=== PATIENT | male | born 1980 | race Caucasian/White ===

== ENCOUNTER 2017-11-23 07:05 | Emergency (ER) | payer BC, SELFPAY ==
[2017-11-23 07:06] VITALS: BP 151/112; PULSE 82; RESP 16; TEMP 36; O2SAT 97; BMI 36.3
--- NOTE | 2017-11-23 07:26 | RAD_ITS ---
STUDY: X-RAY CHEST REASON FOR EXAM: Male, 37 years old. Syncope TECHNIQUE: PA and 2 lateral views of the chest. COMPARISON: 12/01/2016 FINDINGS: EKG leads overlie the chest The lungs are clear and expanded. There is no demonstrated pleural abnormality. Normal size heart. Normal mediastinum and chong. Normal visualized pulmonary arteries. Normal visualized aortic arch and descending thoracic aorta. Normal visualized thoracic spine. Normal visualized ribs, clavicles, and shoulders. There is no demonstrated abnormality of the visualized soft tissue structures of the upper abdomen. RAD/Chest PA and Lateral IMPRESSION: Normal x-ray examination of the chest. Electronically Signed: Esequiel Juárez MD at 8:21 EDT , Service support ,
--- NOTE | 2017-11-23 07:26 | EKG12_ITS ---
Test Reason : SYNCOPE Blood Pressure : / mmHG Vent. Rate : 078 BPM Atrial Rate : 078 BPM P-R Int : 158 ms QRS Dur : 092 ms QT Int : 396 ms P-R-T Axes : 055 028 016 degrees QTc Int : 451 ms Normal sinus rhythm with sinus arrhythmia Normal ECG Confirmed by ANDRA GUSTAFSON, KRISHAN ([id number]), editorial project manager CAROLINE COTTRELL ([id number]) on 11/25/2017 8:59:53 AM Referred By: SUSHANT Confirmed By:KRISHAN SILVERMAN MD
--- NOTE | 2017-11-23 07:26 | CT_ITS ---
STUDY: CT BRAIN WITHOUT CONTRAST REASON FOR EXAM: Male, 37 years old. Syncope, headache nausea and vomiting RADIATION DOSAGE (If Supplied By Facility): CTDIvol = ( 44.99 ) mGy, DLP = ( 829.85 ) mGycm TECHNIQUE: Transaxial CT imaging of the brain was performed without administration of intravenous contrast material. Individualized dose optimization techniques were used for this CT. COMPARISON: None. FINDINGS: Normal soft tissue structures. Normal calvarium. Normal size ventricles and extra-axial spaces for the patient's age. Normal white matter tracts of the cerebral hemispheres. Normal basal ganglia and thalami. Normal brainstem. Normal cerebellum. There is no intracranial hemorrhage. There are no findings of an acute ischemic infarction. Normal visualized paranasal sinuses. CT/Brain/Head without Contrast IMPRESSION: Normal unenhanced CT scan of the brain. Electronically Signed: Esequiel Juárez MD at 8:15 EDT , Service support ,
[2017-11-23] MEDS: proCHLORPERazine 10 MG/2 ML Vial IV (07:40)
[2017-11-23] MEDS: DiphenhydrAMINE 50 MG/ML Syringe 25 MG IV (07:40)
[2017-11-23] MEDS: 0.9% Normal Saline 1,000 ML 1000 ML IV (07:40)
[2017-11-23 07:41] VITALS: BP 169/114; BP 172/108; BP 175/95; PULSE 70; PULSE 80; PULSE 85
[2017-11-23 07:48] VITALS: BP 152/93; PULSE 78; RESP 20; O2SAT 97
[2017-11-23 08:02] LABS: Absolute Lymphocyte Count 2.78 X10^3/ul (0.83-4.51); Absolute Neutrophil Count 6.5 X10^3/uL (2.0-7.7); Basophil# 0.03 X10^3/uL; Basophil% 0.3 % (0-1); Eosinophil# 0.09 X10^3/uL; Eosinophils% 0.9 % (0-5); Hematocrit 48.7 % (40-54); Lymphocyte # 2.78 X10^3/ul (4.0); Lymphocyte % 27.2 % (19-41); Mean Corp Hgb Conc 34.9 g/gl (32-36); Mean Corpuscular Hgb 29.4 pg (27.0-32.0); Mean Corpuscular Volume 84.3 fL (80-94); Mean Platelet Vol. 9.7 fl (6.2-12.0); Monocyte# 0.79 X10^3/uL; Monocyte% 7.7 % (0-10); Neutrophil % 63.5 % (47-70); Platelet Count 275 K/mm3 (150-450); RBC Distribution Width CV 13.6 % (11.6-14.6); RBC Distribution Width SD 41.5 fl (35.1-43.9); Red Blood Count 5.78 M/mm3 (4.6-6.2); White Blood Count 10.2 K/mm3 (4.4-11.0)
[2017-11-23 08:05] LABS: POSITIVE COUNT NO; POSITIVE DIFFERENTIAL NO; POSITIVE MORPHOLOGY NO
[2017-11-23 08:14] LABS: Anion Gap 5 (5-15); BUN 17 mg/dL (7-18); BUN/Creat Ratio 13.7 RATIO (10-20); Calcium,Total 8.7 mg/dL (8.5-10.1); Chloride 108 mmol/L (98-107); Creatinine, Serum 1.24 mg/dL (0.70-1.30); EST Glomerular Filtration Rate 70 mL/min (>60); Est Glom Filt Rate - Afr Amer 84 mL/min (>60); Estimated Creatinine Clearance 89.53 ml/min; Glucose 109 mg/dL (74-106); Potassium 3.9 mmol/L (3.5-5.1); Sodium Level 140 mmol/L (136-145)
--- NOTE | 2017-11-23 08:30 | ED.VISSUMM ---
- ER Visit Summary Date of Service: 11/23/17 Chief Complaint: Headache History of Present Illness: The patient is a 37 M who presents with headache. He has a history of prior similar headaches and reports a history of migraines. He states he woke initially with symptoms at about midnight last night. He took some ibuprofen and had improvement of symptoms. However when he woke up again at about 4:30 AM his headache had returned. He states it is typical in location and character to his previous headaches. He did vomit twice and reports light sensitivity which is also typical of his previous headaches. He also reports feeling dizzy and lightheaded. When he went to stand up out of bed he fell backwards and had a brief loss of consciousness. He complains of dizziness with standing. He otherwise reports a slight recent cough but no fevers. He denies any recent illness. He denies chest pain or shortness of breath. Physical Examination: Initial blood pressure 151/112 but on repeat in the room is 152/93 vitals otherwise unremarkable Heart regular rate and rhythm Lungs are clear Abdomen soft and nontender Alert and oriented with no focal or lateralizing neurological deficits Pupils are equally round reactive to light Test Results: CT of the head is normal. Chest x-ray is normal. EKG shows normal sinus rhythm at rate of 78 with no acute ischemic changes. Laboratory studies are unremarkable including negative troponin. Orthostatic vital signs are negative. Emergency Department Course and Treatment: She was symptomatically treated with IV fluids Compazine and Benadryl. On reevaluation headache and dizziness have both improved. He complains of feeling a little jittery. This is likely related to the Compazine. He was advised of his elevated blood pressure in particular his elevated diastolic. However he has no chest pain or shortness of breath. He has a history of migraines with prior similar symptoms. I do not believe his headache is related to his hypertension. He notes that he has been elevated previously when in the emergency department. He does not have a primary care physician. He was referred to the next physician on the [facility] [place] referral list. He was advised of the need for outpatient follow-up. He understands to return for new or worsening symptoms was instructed on specific symptoms to monitor for. He is agreeable to the plan was discharged. Treatment Plan: [] Disposition: Discharge Impression: Migraine Syncope Elevated blood pressure This note was generated with [employer] dictation software. It may contain incorrect words, spelling, and punctuation that were not noted in review of the chart prior to signing ED Disposition - Plan for ED Patient: Chief Complaint: Syncope Referrals: Care Physician,No Primary [Primary Care Provider] -
--- NOTE | 2017-11-23 08:33 | ED.DCSUM_ITS ---
- ER Visit Summary Date of Service: 11/23/17 Chief Complaint: Headache History of Present Illness: The patient is a 37 M who presents with headache. He has a history of prior similar headaches and reports a history of migraines. He states he woke initially with symptoms at about midnight last night. He took some ibuprofen and had improvement of symptoms. However when he woke up again at about 4:30 AM his headache had returned. He states it is typical in location and character to his previous headaches. He did vomit twice and reports light sensitivity which is also typical of his previous headaches. He also reports feeling dizzy and lightheaded. When he went to stand up out of bed he fell backwards and had a brief loss of consciousness. He complains of dizziness with standing. He otherwise reports a slight recent cough but no fevers. He denies any recent illness. He denies chest pain or shortness of breath. Physical Examination: Initial blood pressure 151/112 but on repeat in the room is 152/93 vitals otherwise unremarkable Heart regular rate and rhythm Lungs are clear Abdomen soft and nontender Alert and oriented with no focal or lateralizing neurological deficits Pupils are equally round reactive to light Test Results: CT of the head is normal. Chest x-ray is normal. EKG shows normal sinus rhythm at rate of 78 with no acute ischemic changes. Laboratory studies are unremarkable including negative troponin. Orthostatic vital signs are negative. Emergency Department Course and Treatment: She was symptomatically treated with IV fluids Compazine and Benadryl. On reevaluation headache and dizziness have both improved. He complains of feeling a little jittery. This is likely related to the Compazine. He was advised of his elevated blood pressure in particular his elevated diastolic. However he has no chest pain or shortness of breath. He has a history of migraines with prior similar symptoms. I do not believe his headache is related to his hypertension. He notes that he has been elevated previously when in the emergency department. He does not have a primary care physician. He was referred to the next physician on the [facility] referral list. He was advised of the need for outpatient follow-up. He understands to return for new or worsening symptoms was instructed on specific symptoms to monitor for. He is agreeable to the plan was discharged. Treatment Plan: [] Disposition: Discharge Impression: Migraine Syncope Elevated blood pressure This note was generated with [employer] dictation software. It may contain incorrect words, spelling, and punctuation that were not noted in review of the chart prior to signing ED Disposition - Plan for ED Patient: Chief Complaint: Syncope Referrals: Care Physician,No Primary [Primary Care Provider] -
--- NOTE | 2017-11-23 08:33 | ED.DEP ---
ED Disposition - Plan for ED Patient: Chief Complaint: Syncope Instructions: ED Fainting Unkn Cause, ED Cephalgia Unspecified, ED Hypertension Poss Referrals: Care Physician,No Primary [Primary Care Provider] - Rishi Herron MD [STAFF PHYSICIAN] -
[2017-11-23 08:38] VITALS: BP 146/104; PULSE 66; RESP 15; O2SAT 96
== END 2017-11-23 08:45 | disposition home or self-care (01) ==
PROVIDERS: Emergency Provider Emergency Medicine
DX: G43.909 Migraine, unspecified, not intractable, without status migrainosus (principal); R55 Syncope and collapse; R03.0 Elevated blood-pressure reading, without diagnosis of hypertension; R05 Cough; Z72.0 Tobacco use
CPT/HCPCS: 70450; 71046; 80048; 84484; 85025; 93005; 96361; 96374; 96375; 99284; J7030

== ENCOUNTER → 2017-12-01 16:54 | Outpatient (CLI) | payer BC, SELFPAY ==
[2017-12-03 09:24] LABS: Transferrin 271 mg/dL (200-370)
== END ==
PROVIDERS: Family Provider Family Medicine; PCP Family Medicine; Visit Provider Family Medicine
DX: D75.1 Secondary polycythemia (principal)
CPT/HCPCS: 36415; 84466

== ENCOUNTER → 2017-12-04 12:39 | Outpatient (CLI) | payer BC, SELFPAY ==
--- NOTE | 2017-12-04 12:43 | US_ITS ---
STUDY: THYROID ULTRASOUND REASON FOR EXAM: Male, 37 years old. Thyromegaly. TECHNIQUE: Ultrasound evaluation of the thyroid was performed with real-time and static chilel-scale imaging. COMPARISON: None. FINDINGS: RIGHT LOBE: The right lobe of the thyroid gland is enlarged and measures 6.0 cm x 2.2 cm x 2.6 cm. There is a homogeneous echotexture. There are no demonstrated solid, cystic or complex lesions. LEFT LOBE: The left lobe of the thyroid gland is enlarged and measures 5.8 cm x 2.3 cm x 2.2 cm. There is a homogeneous echotexture. There are no demonstrated solid, cystic or complex lesions. ISTHMUS: The isthmus measures 6.0 mm. Lateral to the right lobe of the thyroid, 3 enlarged lymph nodes are seen. The largest measures 2.4 cm x 1.7 cm x 0.6 cm. US/Thyroid IMPRESSION: Diffuse enlargement of the thyroid. Benign appearing enlarged right cervical lymph nodes. Electronically Signed: Madi Nelson MD at 15:50 EDT Tel [phone], Service support ,
== END ==
PROVIDERS: Family Provider Family Medicine; PCP Family Medicine; Visit Provider Family Medicine
DX: E01.0 Iodine-deficiency related diffuse (endemic) goiter (principal)
CPT/HCPCS: 76536

== ENCOUNTER → 2017-12-10 16:02 | Outpatient (CLI) | payer BC, SELFPAY ==
[2017-12-10 18:36] LABS: Iron 75 ug/dL (65-175); Iron Binding Capacity,Total 383 ug/dL (250-450); PERCENT IRON SATURATION 19.6 % (15.0-55.0); T4 Free Direct 1.17 ng/dL (0.76-1.46); Thyroid Stim Hormone (TSH) 2.26 uIU/mL (0.358-3.74)
[2017-12-11 06:57] LABS: Hemoglobin A1c 5.3 % (4.2-6.3)
[2017-12-15 10:05] LABS: Anti-Thyroglobulin AB < 1.0 IU/mL (0.0-0.9); Thyroglobulin, Serum Qt. 26.8 ng/mL (1.4-29.2); Thyroid Peroxidase AB 12 IU/mL (0-34)
== END ==
PROVIDERS: Family Provider Family Medicine; PCP Family Medicine; Visit Provider Family Medicine
DX: D75.1 Secondary polycythemia (principal); E01.0 Iodine-deficiency related diffuse (endemic) goiter; R03.0 Elevated blood-pressure reading, without diagnosis of hypertension; R73.09 Other abnormal glucose
CPT/HCPCS: 36415; 83036; 83540; 83550; 84432; 84439; 84443; 86376; 86800

== ENCOUNTER → 2018-09-15 13:25 | Outpatient (CLI) | payer MEDICAID, SELFPAY ==
--- NOTE | 2018-09-15 13:32 | RAD_ITS ---
STUDY: X-RAY - CERVICAL SPINE REASON FOR EXAM: Male, 38 years old. Lump in left side of the neck with pain. Headache for 3 weeks. TECHNIQUE: 5 view(s) of the cervical spine were obtained. COMPARISON: None FINDINGS: Normal anterior atlantoaxial articulation. Normal odontoid process. There is straightening of the normal cervical lordosis. Normal vertebral bodies and endplates. Normal disc space heights. Normal visualized intervertebral neuroforamina. There is no evidence of acute fracture or loss of vertebral axial height. There is maintenance of normal alignment. The soft tissue structures are unremarkable. There is no visualized mass or foreign body. RAD/Cerv Spine 4 or 5 Views IMPRESSION: 1. Straightened cervical lordosis without other evidence of cervical spine abnormality. 2. No evidence of soft tissue abnormality. Electronically Signed: London Lawrence DO at 18:17 EST Tel [phone], Service support ,
--- NOTE | 2018-09-15 13:33 | RAD_ITS ---
STUDY: X-RAY - LUMBAR SPINE REASON FOR EXAM: Male, 38 years old. Burning pain and numbness in the legs and feet. Headache for 3 weeks. TECHNIQUE: 5 view(s) of the lumbar spine were obtained. COMPARISON: None FINDINGS: Normal lumbar lordosis. There is no substantial scoliosis. There is a normal alignment of the vertebrae. Normal vertebral bodies and endplates. Normal disc space heights. There is no evidence of acute fracture or loss of vertebral axial height. There is no demonstrated spondylolysis of the pars interarticulares. The soft tissue structures are unremarkable. RAD/L/S Spine Min 4 Views IMPRESSION: Normal x-ray examination of the lumbar spine. Electronically Signed: London Lawrence DO at 18:18 EST Tel [phone], Service support ,
== END ==
PROVIDERS: Family Provider Family Medicine; PCP Family Medicine; Referring Provider Chiropractor; Visit Provider Chiropractor
DX: S13.4XXA Sprain of ligaments of cervical spine, initial encounter (principal); S33.5XXA Sprain of ligaments of lumbar spine, initial encounter; X58.XXXA Exposure to other specified factors, initial encounter; Y93.9 Activity, unspecified; Y92.9 Unspecified place or not applicable; Y99.9 Unspecified external cause status
CPT/HCPCS: 72050; 72110

== ENCOUNTER 2020-01-10 19:56 | Emergency (ER) | payer MEDICAID, SELFPAY ==
[2020-01-10 19:57] VITALS: BP 153/101; PULSE 79; RESP 16; TEMP 36.6; O2SAT 97; BMI 34.5
[2020-01-10] MEDS: DiphenhydrAMINE 50 MG/ML Syringe 25 MG IV (20:30)
[2020-01-10] MEDS: proMETHazine 25 MG/ML Syringe 12.5 MG IV (20:30)
[2020-01-10] MEDS: 0.9% Normal Saline 1,000 ML 999 ML IV (20:31)
[2020-01-10] MEDS: Ketorolac 30 MG/ML Syringe 15 MG IV (20:31)
--- NOTE | 2020-01-10 20:59 | ED.DCSUM_ITS ---
History of Present Illness Chief Complaint: Headache Informant: Patient Onset: Days Context: Gradual Timing: Continuous, Waxes and wanes Quality: Similar Prior Headaches, Throbbing Current Severity: Severe Associated Symptoms: Nausea, Vomiting, Photophobia Narrative: Is a 39-year-old male with history of migraines presenting with headache. Demetris baker states his headaches been present for the past 2 days. He has associated nausea and vomiting. He also has photophobia. The headache is on the left side of his head. This feels like his prior migraines. He states sometimes his headaches go away with just ibuprofen and Tylenol but this 1 is not. This is not the worst headache of his life. Has been alternating ibuprofen and Tylenol for pain. His last had ibuprofen about 5 and half hours ago. Patient denies any fever, vision changes or neck pain. He denies any other complaints at this time. He states he has had a head CT in the past which did not show any acute abnormalities. Past Medical History - Allergies and Home Meds Allergies/Adverse Reactions: Allergies No Known Allergies Allergy (Verified 01/10/20 19:57) Primary Care Physician: Serenity Bertrand NP-C [Primary Care Provider] - Past Medical History: - - migraines Surgical History: noncontributory Lives: Spouse/ Significant Other Smoking Status: Current every day smoker Review of Systems General: Denies: Chills, Fever, Sweats Eyes: Reports: - - photophobia . Denies: Visual changes - bilaterally, Diplopia ENT: Denies: Rhinorrhea, Sore throat Cardiovascular: Denies: Chest pain, Palpitations Respiratory: Denies: Dyspnea, Cough, Dyspnea on exertion Gastrointestinal: Reports: Nausea. Denies: Abdominal pain, Vomiting, Diarrhea, Melena, Hematochezia Genitourinary: Denies: Dysuria, Hematuria, Frequency Musculoskeletal: Denies: Back pain, Extremity Pain Skin: Denies: Rash, Wounds Neurological: Reports: Headache. Denies: Weakness, Numbness Physical Exam Vital Signs/Narrative: Vital Signs Temp Pulse Resp BP Pulse Ox 01/10/20 19:57 98 F 79 16 153/101 H 97 Inital Vital Signs reviewed: Yes General: Well nourished, Well developed Head: NC, AT Eyes: Perrl, EOMI ENT: Moist mucous membranes, No rhinorrhea Neck: Supple, No Lymphadenopathy, No JVD, Nontender, No Meningismus Cardiovascular: Regular rate, Regular rhythm, No murmurs Respiratory: No distress, CTA bilaterally, Chest nontender Abdomen: Soft, Nontender, Nondistended, Normal bowel sounds Back: Nontender, Normal Inspection Extremities: Nontender, No edema Skin: Normal color, No rash Neuro: Alert, Oriented x3, Cranial nerves II-XII grossly intact, Normal Strength, Normal Sensation, Normal DTR, Normal Gait Psychological: Normal affect - NIH Stroke Scale 1a Level of Consciousness: 0 1b LOC Questions (Score 2 if aphasic/stupor): 0 1c LOC Commands (Only score 1st attempt): 0 2 Best Gaze (If aphasic, use reflexive mvmts.): 0 3 Visual: 0 4 Facial Palsy: 0 5 Motor Arm Right (UN = amputation/fusion): 0 5 Motor Arm Left: 0 6 Motor Leg Right: 0 6 Motor Leg Left: 0 7 Limb ataxia (Only + if out of proportion): 0 8 Sensory (Aphasia/stupor=0 or 1, coma=2): 0 9 Best Language: 0 10 Dysarthria (mute, coma=2, intubated=UN): 0 11 Extinction and Inattention (only scored if +): 0 Total Score: 0 Diagnostic/Tx/Re-eval - Medical Decision Making She is evaluated for migraine headache. Is consistent with his prior migraines. He appears nontoxic and in no acute distress. He has a normal neurologic exam. Patient is concerned because his blood pressure is mildly elevated at 153. I do not suspect hypertensive emergency as a cause of his symptoms today. Patient has had prior head CTs I do not think a repeat head CT is indicated. Do not suspect meningitis. Patient is given migraine cocktail consisting of Toradol, IV fluids, Benadryl and Phenergan. On reevaluation his headache is gone from a 10 out of 10 to barely there. He will be discharged home. He is given a prescription for Zofran at discharge. He is instructed to follow-up with his primary care doctor. Patient is counseled on signs and symptoms requiring return to the emergency room. Patient verbalizes agreement and understand this plan. Patient discharged home in stable and improved condition. ED Disposition - Plan for ED Patient: Disposition: Home or Assisted Living Diagnosis: Headache Instructions: ED, Migraine (Classical) Prescriptions: Ondansetron [Zofran Odt] 4 mg PO Q8H PRN PRN #12 tab PRN Reason: Nausea Transmission Status: Sent to [id number] Referrals: Serenity Bertrand, COMPUTER SERVICE TECHNICIAN-C [Primary Care Provider] -
[2020-01-10 22:00] VITALS: RESP 18
[2020-01-10 22:28] VITALS: BP 154/87; PULSE 55; RESP 16; O2SAT 98
--- OUTSIDE RECORDS SUMMARY | 2020-05-13 14:58 | XMS RPT_ITS | CCD ---
:1980 External Reference #:[id number] Author Organization [employer] Care Team Providers Name Role Phone Unavailable Unavailable Unavailable Results Result Name Value Range Unit Interpretation Flag Date Location covid on 2020-04-15 COVID 19 Result [facility] See Below [facility] Normal 04-15-2020 [facility] ([place]) (0000 0) Comment: Result Comment: Negative Negative for COVID19 (SARS C oV2) by PCR. This test was developed and its performance characteristics determined by [facility]'s [facility] [place]. This test has bee n authorized by FDA under an Emergency Use Authorization (EUA). This test has been validated in accordance with the FDA's Guidance Document Policy for Diagnostics Test ing in Laboratories Certified to Perform High Complexity Testing under CLI A prior to Emergency use Authorization for Coronavirus Disease 2019 dur ing the Public Health Emergency issued on September 24, 2019. Performed By: [facility] [email or web address] [place] [address] Can Cleaner: Cristobal cruz III, M.D. CLIA#: [id number] Phone#: Performed By: #### COVID ### # Yoan [address] [address] COVID 19 Source [facility] See Below Normal 04-15-2020 [facility] ([place]) ([id number]) Comment: Result Comment: Nasopharynge al Swab Performed By: [facility] [email or web address] [address] Can Cleaner: Cristobal cruz III, M.D. CLIA#: [id number] Phone#: Performed By: #### COVID ### # Yoan Jackson [address] [place] [address] Date of Onset [id number] Normal 04-15-2020 [facility] ([place]) ([address]) Comment: Performed By: #### COVID ### # Yoan Jackson [address] [place] [address] Employed in Healthcare No Normal 020 [facility] ([place] ([address]) Comment: Performed By: #### COVID ### # Yoan Jackson [address] [place] [address] First Test Yes Normal 04-15-2020 [facility] [place] ([address]) Comment: Performed By: #### COVID ### # Yoan Young[address] [address] Hospitalized No Normal 04-15-2020 [facility] ([place] ([address]) Comment: Performed By: #### COVID ### # Yoan Young[address] [address] ICU No Normal 04-15-2020 [facility] ([place] ([address]) Comment: Performed By: #### COVID ### # Yoan [address] [address] Not Normal 04-15-2020 [facility] ([place] ([address]) Comment: Performed By: #### COVID ### # Yoan [address] [address] Resides in Congregate Care No Normal [facility] ([place] Setting ([address]) Comment: Performed By: #### COVID ### # Yoan [address] [address] Symptomatic as Defined by CDC Yes Normal 04-15-2020 [facility] ([place] (0000 0) Comment: Performed By: #### COVID ### # Yoan [address] [address] tsh on 2020-01-19 TSH Qn 1.19 0.36-3.74 mcIU/mL Normal 01-19-2020 [facility] ([place] ([address]) Comment: Performed By: #### CBC, ADIF F, ANEU, TSH, LIPID, CMP, GFR #### [address] [address] lipid on 2020-01-19 Cholesterol [Mass/Vol] 153 0-200 mg/dL Normal 01-18- 020 [facility] ([place]) (0000 0) Comment: Result Comment: Cholesterol Reference Interval: Less than 200 Desirable 200-239 Borderline high risk 240 and above High risk Performed By: #### CBC, ADIF F, ANEU, TSH, LIPID, CMP, GFR #### [address] [address] Cholesterol in HDL 28 40-60 mg/dL Low 01-19-2020 [facility] [Mass/Vol] ([place]) (000 00) Comment: Performed By: #### CBC, ADIF F, ANEU, TSH, LIPID, CMP, GFR #### [address] [address] Cholesterol in LDL 90 0-130 mg/dL Normal 01-19-2020 [facility] [Mass/Vol] ([place]) (000 00) Comment: Performed By: #### CBC, ADIF F, ANEU, TSH, LIPID, CMP, GFR #### [address] [address] Triglyceride [Mass/Vol] 176 0-150 mg/dL High 2019 [facility] ([place] (0000 0) Comment: Result Comment: Triglyceride Reference Interval: Less than 150 Normal 150-199 Borderline high risk 200-499 High risk 500 or higher Very high risk Performed By: #### CBC, ADIF F, ANEU, TSH, LIPID, CMP, GFR #### [address] [address] cmp on 2020-01-19 Albumin [Mass/Vol] 4.2 3.5-5.0 G/dL Normal 01-19-2020 [facility] ([place] ([address]) Comment: Performed By: #### CBC, ADIF F, ANEU, TSH, LIPID, CMP, GFR #### [address] [address] Albumin/Globulin [Mass 1.3 1.1-2.5 ratio Normal 020 [facility]] [facility] [place]) ([address]) Comment: Performed By: #### CBC, ADIF F, ANEU, TSH, LIPID, CMP, GFR #### [address] [address] ALP [Catalytic activity/Vol] 62 40-135 U/L Normal 0 01-19-2020 [facility] ([place] (0000 0) Comment: Performed By: #### CBC, ADIF F, ANEU, TSH, LIPID, CMP, GFR #### [address] [address] ALT [Catalytic activity/Vol] 35 10-35 U/L Normal 0 01-19-2020 [facility] ([place] (0000 0) Comment: Performed By: #### CBC, ADIF F, ANEU, TSH, LIPID, CMP, GFR #### [address] [address] AST [Catalytic activity/Vol] 20 10-40 U/L Normal 0 01-19-2020 [facility] ([place] (0000 0) Comment: Performed By: #### CBC, ADIF F, ANEU, TSH, LIPID, CMP, GFR #### [address] [address] Bili Total 0.6 0.2-1.0 mg/dL Normal 01-19-2020 [facility] ([place] ([address]) Comment: Result Comment: Use of this assay is not recommended for patients undergoing treatment with eltrombopag d ue to the potential for falsely elevated results. Performed By: #### CBC, ADIF F, ANEU, TSH, LIPID, CMP, GFR #### [address] [address] Calcium [Mass/Vol] 8.7 8.4-10.2 mg/dL Normal 01-19-2020 [facility] ([place] (0000 0) Comment: Performed By: #### CBC, ADIF F, ANEU, TSH, LIPID, CMP, GFR #### [address] [address] Chloride [Moles/Vol] 101 98-107 mmol/L Normal 0 [facility] ([place] (0000 0) Comment: Performed By: #### CBC, ADIF F, ANEU, TSH, LIPID, CMP, GFR #### [address] [address] CO2 [Moles/Vol] 25 22-29 mmol/L Normal 01-19-2020 [facility]) (9[address]21) Comment: Performed By: #### CBC, ADIF F, ANEU, TSH, LIPID, CMP, GFR #### [address] [address] Creatinine [Mass/Vol] 1.05 0.70-1.30 mg/dL Normal 01-19-20 20 [facility] ([place] ([address]) Comment: Performed By: #### CBC, ADIF F, ANEU, TSH, LIPID, CMP, GFR #### [address] [address] Electrolyte Balance 11.0 mEq/L Normal 01-19-2020 [facility]) ([address]79) Comment: Performed By: #### CBC, ADIF F, ANEU, TSH, LIPID, CMP, GFR #### [address] [address] Globulin (S) [Mass/Vol] 3.3 G/dL Normal 2019 [facility]) ([address]) Comment: Performed By: #### CBC, ADIF F, ANEU, TSH, LIPID, CMP, GFR #### [address] [address] Glucose [Mass/Vol] 102 70-105 mg/dL Normal 01-19-2020 [facility] ([place] ([address]) Comment: Performed By: #### CBC, ADIF F, ANEU, TSH, LIPID, CMP, GFR #### [address] [address] Potassium [Moles/Vol] 4.5 3.5-5.1 mmol/L Normal 01-19-20 20 [facility] ([place] (0000 0) Comment: Performed By: #### CBC, ADIF F, ANEU, TSH, LIPID, CMP, GFR #### [address] [address] Protein [Mass/Vol] 7.5 6.4-8.2 G/dL Normal 01-19-2020 [facility] ([place] ([address]) Comment: Performed By: #### CBC, ADIF F, ANEU, TSH, LIPID, CMP, GFR #### [address] [address] Sodium [Moles/Vol] 137 136-145 mmol/L Normal 01-19-2020 [facility] ([place] (0000 0) Comment: Performed By: #### CBC, ADIF F, ANEU, TSH, LIPID, CMP, GFR #### [address] [address] Urea nitrogen [Mass/Vol] 16 7-18 mg/dL Normal 01-18 [facility] ([place] (0000 0) Comment: Performed By: #### CBC, ADIF F, ANEU, TSH, LIPID, CMP, GFR #### [address] [address] Urea nitrogen/Creatinine [Mass 15 7-27 ratio Normal 01-19-2020 [facility] ratio] [facility] ([place] ([address]) Comment: Performed By: #### CBC, ADIF F, ANEU, TSH, LIPID, CMP, GFR #### [address] [address] cbc on 2020-01-19 Erythrocyte distribution 13.7 11.5-14.5 % Normal 01-18 [facility] width (RBC) [Ratio] [facility] ([place] ([address]) Comment: Performed By: #### CBC, ADIF F, ANEU, TSH, LIPID, CMP, GFR #### [address] [address] Hematocrit (Bld) [Volume 50.7 42.0-52.0 % Normal 01-18 [facility] fraction] ([place]) (0000 0) Comment: Performed By: #### CBC, ADIF F, ANEU, TSH, LIPID, CMP, GFR #### [address] [address] Hemoglobin (Bld) 17.2 14.0-18.0 G/dL Normal 01-19-2020 [facility] [Mass/Vol] [facility] ([place]) ([address]) Comment: Performed By: #### CBC, ADIF F, ANEU, TSH, LIPID, CMP, GFR #### [address] [address] MCH (RBC) [Entitic mass] 29.0 27.0-31.2 pg Normal 01-18 [facility] ([place]) (0000 0) Comment: Performed By: #### CBC, ADIF F, ANEU, TSH, LIPID, CMP, GFR #### [address] [address] MCHC (RBC) [Mass/Vol] 33.9 31.8-35.4 G/dL Normal 01-19-20 20 [facility] ([place]) (0000 0) Comment: Performed By: #### CBC, ADIF F, ANEU, TSH, LIPID, CMP, GFR #### [address] [address] MCV (RBC) [Entitic vol] 85.6 80.0-94.0 fL Normal 2019 [facility] ([place]) (0000 0) Comment: Performed By: #### CBC, ADIF F, ANEU, TSH, LIPID, CMP, GFR #### [address] [address] Platelet mean volume 8.2 7.4-10.4 fL Normal 0 [facility] (Bld) [Entitic vol] ([place]) ([address]) Comment: Performed By: #### CBC, ADIF F, ANEU, TSH, LIPID, CMP, GFR #### [address] [address] Platelets (Bld) [#/Vol] 301 130-400 10 3/mcL Normal 2019 [facility] ([place] ([address]) Comment: Performed By: #### CBC, ADIF F, ANEU, TSH, LIPID, CMP, GFR #### [address] [address] RBC (Bld) [#/Vol] 5.92 4.04-6.13 10 6/mcL Normal 01-19-2020 Counts include 234 beds at the [facility] ([place]) (0000 0) Comment: Performed By: #### CBC, ADIF F, ANEU, TSH, LIPID, CMP, GFR #### [address] [address] WBC (Bld) [#/Vol] 12.70 4.60-10.80 10 3/mcL High 01-19-2020 [facility] ([place] (0000 0) Comment: Performed By: #### CBC, ADIF F, ANEU, TSH, LIPID, CMP, GFR #### [address] [address] .neuabs on Neutrophils (Bld) 8.00 2.85-6.16 10 3/mcL High 01-19-2020 [facility] [#/Vol] [facility] ([place] ([address]) Comment: Performed By: #### CBC, ADIF F, ANEU, TSH, LIPID, CMP, GFR #### [address] [address] .gfr on 2020-01-19 GFR 95 ml/min/1.73sqm Normal 12-26 [facility] ([place]) (0000 0) Comment: Result Comment: GFR Population mean for Afri can [place]uran, Non- Americans Ages 20-29 = 116 mL/min/1.73 sq.m. Ages 30-39 = 107 mL/min/1.73 sq.m. Ages 40-49 = 99 mL/min/1.73 sq.m. Ages 50-59 = 93 mL/min/1.73 sq.m. Ages 60-69 = 85 mL/min/1.73 sq.m. Ages 70+ = 75 mL/min/1.73 sq .m. Chronic Kidney Disease: Less than 60 mL/min/1.73 square meters End Stage Renal Disease: Les s than 15 mL/min/1.73 square meters Performed By: #### CBC, ADIF F, ANEU, TSH, LIPID, CMP, GFR #### [address] [address] GFR Non- 79 ml/min/1.73sqm Normal 01-19-2020 [facility] ([place]) ([address]) Comment: Result Comment: GFR Population mean for Afri can Honduran, Non- Americans Ages 20-29 = 116 mL/min/1.73 sq.m. Ages 30-39 = 107 mL/min/1.73 sq.m. Ages 40-49 = 99 mL/min/1.73 sq.m. Ages 50-59 = 93 mL/min/1.73 sq.m. Ages 60-69 = 85 mL/min/1.73 sq.m. Ages 70+ = 75 mL/min/1.73 sq .m. Chronic Kidney Disease: Less than 60 mL/min/1.73 square meters End Stage Renal Disease: Les s than 15 mL/min/1.73 square meters Performed By: #### CBC, ADIF F, ANEU, TSH, LIPID, CMP, GFR #### [address] [address] .auto diff on 01-18 Ammonia (P) [Mass/Vol] 0.80 0.15-1.00 10 3/mcL Normal 020 [facility] ([place] ([address]) Comment: Performed By: #### CBC, ADIF F, ANEU, TSH, LIPID, CMP, GFR #### [address] [address] Basophils (Bld) 0.10 0.00-0.19 10 3/mcL Normal 01-19-2020 [facility] [#/Vol] [facility] ([place] ([address]) Comment: Performed By: #### CBC, ADIF F, ANEU, TSH, LIPID, CMP, GFR #### [address] [address] Basophils/100 WBC (Bld) 0.5 0.0-2.5 % Normal 2019 [facility] ([place] (0000 0) Comment: Performed By: #### CBC, ADIF F, ANEU, TSH, LIPID, CMP, GFR #### [address] [address] Eosinophils (Bld) 0.20 0.00-0.40 10 3/mcL Normal 01-19-2020 [facility] [#/Vol] [facility] ([place]) ([address]) Comment: Performed By: #### CBC, ADIF F, ANEU, TSH, LIPID, CMP, GFR #### [address] [address] Eosinophils/100 WBC (Bld) 1.7 0.0-7.0 % Normal 12-26 [facility] ([place] (0000 0) Comment: Performed By: #### CBC, ADIF F, ANEU, TSH, LIPID, CMP, GFR #### [address] [address] Lymphocytes (Bld) 3.60 0.77-3.85 10 3/mcL Normal 01-19-2020 [facility] [#/Vol] [facility] ([place] ([address]) Comment: Performed By: #### CBC, ADIF F, ANEU, TSH, LIPID, CMP, GFR #### [address] [address] Lymphocytes/100 WBC (Bld) 28.2 10.0-50.0 % Normal 12-26 [facility] ([place]) ([address]) Comment: Performed By: #### CBC, ADIF F, ANEU, TSH, LIPID, CMP, GFR #### [address] [address] Monocytes/100 WBC (Bld) 6.5 1.7-13.0 % Normal 2019 [facility] ([place] (0000 0) Comment: Performed By: #### CBC, ADIF F, ANEU, TSH, LIPID, CMP, GFR #### [address] [address] Neutrophils/100 WBC (Bld) 63.1 37.0-80.0 % Normal 06- [facility] ([place]) ([address]) Comment: Performed By: #### CBC, ADIF F, ANEU, TSH, LIPID, CMP, GFR #### [place] [address] [place], [place] [address] progress on 2019-07 PROGRESS HNO ID: [id number] Normal 07-28-2019 [facility] Author: Raeann Oliva [place] ([id number]) Service: ? Author Type: Nurse Practitioner Type: Progress Notes Filed: 07/28/2019 12:37 PM Note Text: Subjective HPI Tiera Nova is a 39 year old male who presents with s inus pain, ear pain, and cough for the last 2 weeks. Bringing up thick mucu s that is sometimes blood tinged from the sinuses. Mild shortness of b reath with exertion. No known fever, denies chest pain. Multiple sick c ontacts at home. Current everyday smoker. He has tried mucinex as neede d without relief- made him feel jittery. Review of Systems Constitutional: Positive for malaise/fatigue. Negative for c hills and fever. HENT: Positive for congestion, ear pain and sinus pain. Nega tive for sore throat. Respiratory: Positive for cough, sputum production and short ness of breath. Negative for wheezing. Cardiovascular: Negative for chest pain. Skin: Negative for itching and rash. Neurological: Positive for headaches. Negative for dizziness . BP 138/86 Pulse 101 Temp 37.2 ?C (98.9 ?F) (Left Tympani c) Resp 16 Wt 113.9 kg (251 lb) SpO2 96% BMI 35.54 kg/m? PAST MEDICAL HISTORY Diagnosis Date - NEGATIVE MEDICAL HISTORY PAST SURGICAL HISTORY Procedure Laterality Date - APPENDECTOMY - PAST SURGICAL HISTORY OF Torn shoulder labrum ALLERGIES Patient has no known allergies. MEDICATIONS No prescriptions on file. FAMILY HISTORY Problem Relation Age of Onset - Arthritis Maternal Grandmother - Diabetes Mother - Cancer Maternal Grandmother - Cancer Maternal Grandfather - Coronary Artery Disease Maternal Grandfather CABG - Alzheimer's Disease Paternal Grandfather Social History Tobacco Use - Smoking status: Current Every Day Smoker Packs/day: 0.30 Types: Cigarettes - Smokeless tobacco: Never Used - Tobacco comment: 8-10 per day Substance Use Topics - Alcohol use: Yes Comment: rare - Drug use: No Objective Physical Exam Constitutional: He is oriented to person, place, and time an d well-developed, well-nourished, and in no distress. HENT: Head: Normocephalic and atraumatic. Right Ear: Tympanic membrane is bulging. Tympanic membrane i s not erythematous. No middle ear effusion. Left Ear: Tympanic membrane is bulging. Tympanic membrane is not erythematous. No middle ear effusion. Nose: Mucosal edema and rhinorrhea present. Right sinus exhi bits maxillary sinus tenderness. Right sinus exhibits no frontal sinus tend erness. Left sinus exhibits maxillary sinus tenderness. Left sinus exhibi ts no frontal sinus tenderness. Mouth/Throat: Mucous membranes are not pale, not dry and not cyanotic. Posterior oropharyngeal erythema present. No posterior oroph aryngeal edema. Eyes: Conjunctivae are normal. Cardiovascular: Normal rate, regular rhythm, normal heart so unds and intact distal pulses. Exam reveals no gallop and no friction rub. No murmur heard. Pulmonary/Chest: Effort normal and breath sounds normal. No respiratory distress. He has no wheezes. He has no rales. He exhibits no tenderness. Musculoskeletal: General: No edema. Lymphadenopathy: He has no cervical adenopathy. Neurological: He is alert and oriented to person, place, and time. Gait normal. Skin: Skin is warm and dry. No rash noted. He is not diaphor etic. ASSESSMENT/PLAN: 1. Sinobronchitis - ICD9: 473.9, 490, ICD10: J32.9, J40 - Supportive care with plenty of fluids, rest, and analgesia prn. - Follow up in 3-5 days if symptoms persist or worsen. - AMOXICILLIN 875 MG TABLET - PREDNISONE 20 MG TABLET Patient understands if he/she develops any shortness of adriana th, chest pain, or persistent fever, they should be taken to the ER im mediately or call 911. All of the above discussed with the patient in detail. Mariia wooten is in agreement with the above plan. Treatment and plan of care di scussed including course of treatment, possible medication side effe cts, and what to watch for in regards to worsening signs and symptoms. All questions addressed. Raeann Oliva APRN.[employer] DEVELOPER [facility] on 2019-07-28 CNOV Office Visit (UCWSTR) Normal 07-28-19 20 [facility] TIERA NOVA ([id number]) 1980 [facility] Date Time Provider Department ([id number]) 07/28/19 12:00 PM RAEANN OLIVA [facility] During your visit today, we recorded the following informati on about you: Temperature Pulse Respiration Blood pressure 98.9 degrees 101/minute 16/minute 138/86 Weight 113.9 kg Raeann Oliva, SUPERVISOR [employer]ATING.[employer]EL[employer] 07/28/2019 12:37 PM Addendum Subjective HPI Tiera Nova is a 39 year old male who presents with s inus pain, ear pain, and cough for the last 2 weeks. Bringing up thick mucus that is sometimes blood tinged from the sinuse s. Mild shortness of breath with exertion. No known fever, denies chest pain. Multiple sick contacts at home. Cu rrent everyday smoker. He has tried mucinex as needed without r elief- made him feel jittery. Review of Systems Constitutional: Positive for malaise/fatigue. Negative for chills and fever. HENT: Positive for congestion, ear pain and sinus pain. Nega tive for sore throat. Respiratory: Positive for cough, sputum production and haleigh rtness of breath. Negative for wheezing. Cardiovascular: Negative for chest pain. Skin: Negative for itching and rash. Neurological: Positive for headaches. Negative for dizziness . BP 138/86 Pulse 101 Temp 37.2 ?C (98.9 ?F) (Left Tympani c) Resp 16 Wt 113.9 kg (251 lb) SpO2 96% BMI 35.54 kg/m? PAST MEDICAL HISTORY Diagnosis Date - NEGATIVE MEDICAL HISTORY PAST SURGICAL HISTORY Procedure Laterality Date - APPENDECTOMY - PAST SURGICAL HISTORY OF Torn shoulder labrum ALLERGIES Patient has no known allergies. MEDICATIONS No prescriptions on file. FAMILY HISTORY Problem Relation Age of Onset - Arthritis Maternal Grandmother - Diabetes Mother - Cancer Maternal Grandmother - Cancer Maternal Grandfather - Coronary Artery Disease Maternal Grandfather CABG - Alzheimer's Disease Paternal Grandfather Social History Tobacco Use - Smoking status: Current Every Day Smoker Packs/day: 0.30 Types: Cigarettes - Smokeless tobacco: Never Used - Tobacco comment: 8-10 per day Substance Use Topics - Alcohol use: Yes Comment: rare - Drug use: No Objective Physical Exam Constitutional: He is oriented to person, place, and time and well-developed, well-nourished, and in no distress. HENT: Head: Normocephalic and atraumatic. Right Ear: Tympanic membrane is bulging. Tympanic membrane is not erythematous. No middle ear effusion. Left Ear: Tympanic membrane is bulging. Tympanic membrane is not erythematous. No middle ear effusion. Nose: Mucosal edema and rhinorrhea present. Right sinus exhi bits maxillary sinus tenderness. Right sinus exhibits n o frontal sinus tenderness. Left sinus exhibits maxillary sinus tenderness. Left sinus exhibits no frontal sinus tenderness. Mouth/Throat: Mucous membranes are not pale, not dry and not cyanotic. Posterior oropharyngeal erythema present. No posterior neo pharyngeal edema. Eyes: Conjunctivae are normal. Cardiovascular: Normal rate, regular rhythm, normal heart sounds and intact distal pulses. Exam reveals no gallop and no friction rub. No murmur heard. Pulmonary/Chest: Effort normal and breath sounds normal. No respiratory distress. He has no wheezes. He has no rales. He exhibits no tenderness. Musculoskeletal: General: No edema. Lymphadenopathy: He has no cervical adenopathy. Neurological: He is alert an d oriented to person, place, and time. Gait normal. Skin: Skin is warm and dry. No rash noted. He is not diaphor etic. ASSESSMENT/PLAN: 1. Sinobronchitis - ICD9: 473.9, 490, ICD10: J32.9, J40 - Supportive care with plenty of fluids, rest, and analgesia prn. - Follow up in 3-5 days if symptoms persist or worsen. - AMOXICILLIN 875 MG TABLET - PREDNISONE 20 MG TABLET Patient understands if he/she develops a ny shortness of breath, chest pain, or persistent fever, they should be taken to the ER immediately or call 911. All of the above discussed with the chris ent in detail. Patient is in agreement with the above plan. Treatment and plan of care discussed including course of treatment, possible medication side effects, and what to watch for in regards to worsening signs and symptoms. All questions addressed. Raeann Oliva APRN.MARCIN Referring Provider: SELF [[id number]] Allergies As of Date: 07/28/2019 (No Known Allergies) Date Reviewed: 07/28/2019 Reviewed by: Raeann Oliva - Fully Assessed Reason for Visit: Sinusitis [127] Cmt: x 2 weeks Primary Visit Diagnosis:Sinobronchitis [J32.9, J40] Order(s):amoxicillin (AMOXIL) 875 mg tabletTake 1 tablet by mouth twice daily for 10 days.Disp: 20 tabletRfl: 0 predniSONE (DELTASONE) 20 mg tabletTake 2 tablets by mouth o nce daily for 5 days. 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 PREDNISONE 20 MG TABLET 10 t* 0 07/28/2019 08/02/2019 Route: ORAL Sig: Take 2 tablets by mouth once daily for 5 days. Take zainab ly with food. Medications Discontinued During This Encounter amoxicillin (AMOXIL) 875 mg tablet 20 t* 0 05/28/2015 0 Route: ORAL Sig: Take 1 tablet by mouth twice daily for 10 days. Disc: Reason for discontinue is not on file. Letter Text Encounter Status:Closed by PJ FORTE.RAEANN BURCH on Summary Purpose Family History No Family History Records FoundNo Family History Records Found Advance Directives No Advanced Directives Records FoundNo Advanced Directives Records Found Additional Source Comments FOR RECORDS PERTAINING TO PATIENTS WHO ARE OR HAVE BEEN ENROLLED IN A CHEMICAL DEPENDENCY/SUBSTANCE ABUSE PROGRAM, SOME INFORMATION MAY BE OMITTED. This clinical summary was aggregated from multiple sources. Caution should be exercised in using it in the provision of clinical care. This summary normalizes information from multiple sources, and as a consequence, information in this document may materially changethe coding, format and clinical context of patient data. In addition, data may be omittedin some cases. CLINICAL DECISIONS SHOULD BE BASED ON THE PRIMARY CLINICAL RECORDS. [facility] provides no warranty or guarantee of the accuracy or completeness of information in this document. UNRECOGNIZED CONTENT PROVIDED BELOW FOR UNRECOGNIZED SECTION No Status Records FoundNo Status Records Found UNRECOGNIZED CONTENT PROVIDED BELOW FOR UNRECOGNIZED SECTION INFORMATION SOURCE DATE CREATED AUTHOR AUTHOR'S ORGANIZATIO N 07/28/2019 [facility] DATE CREATED AUTHOR AUTHOR'S ORGANIZATIO N 04/15/2020 [facility]
--- OUTSIDE RECORDS SUMMARY | 2020-05-13 14:58 | XMS RPT_ITS | CCD ---
:1980 External Reference #:[id number] Author Organization [employer] Care Team Providers Name Role Phone Unavailable Unavailable Unavailable Results Result Name Value Range Unit Interpretation Flag Date Location covid on 2020-04-15 COVID 19 Result MANAGER FOOD See Below [facility] Normal 04-15-2020 [facility] ([place]) (0000 0) Comment: Result Comment: Negative Negative for COVID19 (SARS C oV2) by PCR. This test was developed and its performance characteristics determined by [facility] [place]. This test has bee n authorized by [...] issued on September 24, 2019. Performed By: [facility] [place] [address] Energy Administrator: Cristobal cruz III, M.D. CLIA#: [id number] Phone#: Performed By: #### COVID ### # Yoan [address] [address] COVID 19 Source MANAGER FOOD See Below Normal 04-15-2020 [facility] ([place]) ([id number]) Comment: Result Comment: Nasopharynge al Swab Performed By: [facility] [employer] [place] [address] Energy Administrator: Cristobal cruz III, M.D. CLIA#: [id number] Phone#: Performed By: #### COVID ### # Yoan Jackson [address] [place] [address] Date of Onset [id number] Normal 04-15-2020 [facility] ([place]) (26538) Comment: Performed By: #### COVID ### # Yoan Jackson [address] [place] [address] Employed in Healthcare No Normal 020 [facility] ([place]) ([id number]) Comment: Performed By: #### COVID ### # Yoan Jackson [address] [place] [address] First Test Yes Normal 04-15-2020 [facility] ([place]) (28188) Comment: Performed By: #### COVID ### # Yoan [address] [address] Hospitalized No Normal 04-15-2020 [facility] ([place]) (22871) Comment: Performed By: #### COVID ### # Yoan Young[address] [address] ICU No Normal 04-15-2020 [facility] ([place]) (14720) Comment: Performed By: #### COVID ### # Yoan [address] [address] Not Normal 04-15-2020 [facility] ([place]) (87152) Comment: Performed By: #### COVID ### # Yoan [address] [address] Resides in Congregate Care No Normal [facility] ([place]) Setting ([address]) Comment: Performed By: #### COVID ### # Yoan [address] [address] Symptomatic as Defined by CDC Yes Normal 04-15-2020 [facility] ([place]) (0000 0) Comment: Performed By: #### COVID ### # Yoan [address] [address] tsh on 2020-01-19 TSH Qn 1.19 0.36-3.74 mcIU/mL Normal 01-19-2020 [facility] ([place]) (97888) Comment: Performed By: #### CBC, ADIF F, ANEU, TSH, LIPID, CMP, GFR #### [address] [address] lipid on 2020-01-19 Cholesterol [Mass/Vol] 153 0-200 mg/dL Normal 01-18- 020 [facility] ([place]) (0000 0) Comment: Result Comment: Cholesterol Reference Interval: Less than 200 Desirable 200-239 Borderline high risk 240 and above High risk Performed By: #### CBC, ADIF F, ANEU, TSH, LIPID, CMP, GFR #### [address] [address] Cholesterol in HDL 28 40-60 mg/dL Low 01-19-2020 [facility] [Mass/Vol] ([place]) (000 00) Comment: Performed By: #### CBC, ADIF F, ANEU, TSH, LIPID, CMP, GFR #### [address] [address] Cholesterol in LDL 90 0-130 mg/dL Normal 01-19-2020 [facility] [Mass/Vol] ([place]) (000 00) Comment: Performed By: #### CBC, ADIF F, ANEU, TSH, LIPID, CMP, GFR #### [address] [address] Triglyceride [Mass/Vol] 176 0-150 mg/dL High 2019 [facility] ([place]) (0000 0) Comment: Result Comment: Triglyceride Reference Interval: Less than 150 Normal 150-199 Borderline high risk 200-499 High risk 500 or higher Very high risk Performed By: #### CBC, ADIF F, ANEU, TSH, LIPID, CMP, GFR #### [address] [address] cmp on 2020-01-19 Albumin [Mass/Vol] 4.2 3.5-5.0 G/dL Normal 01-19-2020 [facility] ([place]) ([address]76) Comment: Performed By: #### CBC, ADIF F, ANEU, TSH, LIPID, CMP, GFR #### [address] [address] Albumin/Globulin [Mass 1.3 1.1-2.5 ratio Normal 020 [facility]] [facility]) ([address]) Comment: Performed By: #### CBC, ADIF F, ANEU, TSH, LIPID, CMP, GFR #### [address] [address] ALP [Catalytic activity/Vol] 62 40-135 U/L Normal 0 01-19-2020 [facility] ([place]) (0000 0) Comment: Performed By: #### CBC, ADIF F, ANEU, TSH, LIPID, CMP, GFR #### [address] [address] ALT [Catalytic activity/Vol] 35 10-35 U/L Normal 0 01-19-2020 [facility] ([place]) (0000 0) Comment: Performed By: #### CBC, ADIF F, ANEU, TSH, LIPID, CMP, GFR #### [address] [address] AST [Catalytic activity/Vol] 20 10-40 U/L Normal 0 01-19-2020 [facility] ([place]) (0000 0) Comment: Performed By: #### CBC, ADIF F, ANEU, TSH, LIPID, CMP, GFR #### [address] [address] Bili Total 0.6 0.2-1.0 mg/dL Normal 01-19-2020 [facility] ([place]) ([address]123) Comment: Result Comment: Use of this assay is not recommended for patients undergoing treatment with eltrombopag d ue to the potential for falsely elevated results. Performed By: #### CBC, ADIF F, ANEU, TSH, LIPID, CMP, GFR #### [address] [address] Calcium [Mass/Vol] 8.7 8.4-10.2 mg/dL Normal 01-19-2020 [facility] ([place]) (0000 0) Comment: Performed By: #### CBC, ADIF F, ANEU, TSH, LIPID, CMP, GFR #### [address] [address] Chloride [Moles/Vol] 101 98-107 mmol/L Normal 0 [facility] ([place]) (0000 0) Comment: Performed By: #### CBC, ADIF F, ANEU, TSH, LIPID, CMP, GFR #### [address] [address] CO2 [Moles/Vol] 25 22-29 mmol/L Normal 01-19-2020 [facility]) (32894) Comment: Performed By: #### CBC, ADIF F, ANEU, TSH, LIPID, CMP, GFR #### [address] [address] Creatinine [Mass/Vol] 1.05 0.70-1.30 mg/dL Normal 01-19-20 20 [facility] ([place]) (27515) Comment: Performed By: #### CBC, ADIF F, ANEU, TSH, LIPID, CMP, GFR #### [address] [address] Electrolyte Balance 11.0 mEq/L Normal 01-19-2020 [facility]) (18912) Comment: Performed By: #### CBC, ADIF F, ANEU, TSH, LIPID, CMP, GFR #### [address] [address] Globulin (S) [Mass/Vol] 3.3 G/dL Normal 2019 [facility]) (07778) Comment: Performed By: #### CBC, ADIF F, ANEU, TSH, LIPID, CMP, GFR #### [address] [address] Glucose [Mass/Vol] 102 70-105 mg/dL Normal 01-19-2020 [facility] ([place]) (67024) Comment: Performed By: #### CBC, ADIF F, ANEU, TSH, LIPID, CMP, GFR #### [address] [address] Potassium [Moles/Vol] 4.5 3.5-5.1 mmol/L Normal 01-19-20 20 [facility] ([place]) (0000 0) Comment: Performed By: #### CBC, ADIF F, ANEU, TSH, LIPID, CMP, GFR #### [address] [address] Protein [Mass/Vol] 7.5 6.4-8.2 G/dL Normal 01-19-2020 [facility] ([place]) (08032) Comment: Performed By: #### CBC, ADIF F, ANEU, TSH, LIPID, CMP, GFR #### [address] [address] Sodium [Moles/Vol] 137 136-145 mmol/L Normal 01-19-2020 [facility] ([place]) (0000 0) Comment: Performed By: #### CBC, ADIF F, ANEU, TSH, LIPID, CMP, GFR #### [address] [address] Urea nitrogen [Mass/Vol] 16 7-18 mg/dL Normal 01-18 [facility] ([place]) (0000 0) Comment: Performed By: #### CBC, ADIF F, ANEU, TSH, LIPID, CMP, GFR #### [address] [address] Urea nitrogen/Creatinine [Mass 15 7-27 ratio Normal 01-19-2020 [facility] ratio] [facility] ([place]) (40096) Comment: Performed By: #### CBC, ADIF F, ANEU, TSH, LIPID, CMP, GFR #### [address] [address] cbc on 2020-01-19 Erythrocyte distribution 13.7 11.5-14.5 % Normal 01-18 [facility] width (RBC) [Ratio] [facility] ([place]) (33061) Comment: Performed By: #### CBC, ADIF F, ANEU, TSH, LIPID, CMP, GFR #### [address] [address] Hematocrit (Bld) [Volume 50.7 42.0-52.0 % Normal 01-18 [facility] fraction] ([place]) (0000 0) Comment: Performed By: #### CBC, ADIF F, ANEU, TSH, LIPID, CMP, GFR #### [address] [address] Hemoglobin (Bld) 17.2 14.0-18.0 G/dL Normal 01-19-2020 [facility] [Mass/Vol] [facility] ([place]) (01746) Comment: Performed By: #### CBC, ADIF F, ANEU, TSH, LIPID, CMP, GFR #### [address] [address] MCH (RBC) [Entitic mass] 29.0 27.0-31.2 pg Normal 01-18 [facility] ([place]) (0000 0) Comment: Performed By: #### CBC, ADIF F, ANEU, TSH, LIPID, CMP, GFR #### [address] [address] MCHC (RBC) [Mass/Vol] 33.9 31.8-35.4 G/dL Normal 01-19-20 20 [facility] ([place]) (0000 0) Comment: Performed By: #### CBC, ADIF F, ANEU, TSH, LIPID, CMP, GFR #### [address] [address] MCV (RBC) [Entitic vol] 85.6 80.0-94.0 fL Normal 2019 [facility] ([place]) (0000 0) Comment: Performed By: #### CBC, ADIF F, ANEU, TSH, LIPID, CMP, GFR #### [address] [address] Platelet mean volume 8.2 7.4-10.4 fL Normal 0 [facility] (Bld) [Entitic vol] ([place]) (99211) Comment: Performed By: #### CBC, ADIF F, ANEU, TSH, LIPID, CMP, GFR #### [address] [address] Platelets (Bld) [#/Vol] 301 130-400 10 3/mcL Normal 2019 [facility] ([place]) (90776) Comment: Performed By: #### CBC, ADIF F, ANEU, TSH, LIPID, CMP, GFR #### [address] [address] RBC (Bld) [#/Vol] 5.92 4.04-6.13 10 6/mcL Normal 01-19-2020 [facility] ([place]) (0000 0) Comment: Performed By: #### CBC, ADIF F, ANEU, TSH, LIPID, CMP, GFR #### [address] [address] WBC (Bld) [#/Vol] 12.70 4.60-10.80 10 3/mcL High 01-19-2020 [facility] ([place]) (0000 0) Comment: Performed By: #### CBC, ADIF F, ANEU, TSH, LIPID, CMP, GFR #### [address] [address] .neuabs on Neutrophils (Bld) 8.00 2.85-6.16 10 3/mcL High 01-19-2020 [facility] [#/Vol] [facility] ([place]) (86568) Comment: Performed By: #### CBC, ADIF F, ANEU, TSH, LIPID, CMP, GFR #### [address] [address] .gfr on 2020-01-19 GFR 95 ml/min/1.73sqm Normal 12-26 [facility] ([place]) (0000 0) Comment: Result Comment: GFR Population mean for Afri can Congolese, Non- Americans Ages 20-29 = 116 mL/min/1.73 [...] F, ANEU, TSH, LIPID, CMP, GFR #### [address] [address] GFR Non- 79 ml/min/1.73sqm Normal 01-19-2020 [facility] ([place]) (38182) Comment: Result Comment: GFR Population mean for Afri can Congolese, Non- Americans Ages 20-29 = 116 mL/min/1.73 [...] F, ANEU, TSH, LIPID, CMP, GFR #### [address] [address] .auto diff on 01-18 Ammonia (P) [Mass/Vol] 0.80 0.15-1.00 10 3/mcL Normal 020 [facility] ([place]) (90184) Comment: Performed By: #### CBC, ADIF F, ANEU, TSH, LIPID, CMP, GFR #### [address] [address] Basophils (Bld) 0.10 0.00-0.19 10 3/mcL Normal 01-19-2020 [facility] [#/Vol] [facility] ([place]) (26953) Comment: Performed By: #### CBC, ADIF F, ANEU, TSH, LIPID, CMP, GFR #### [address] [address] Basophils/100 WBC (Bld) 0.5 0.0-2.5 % Normal 2019 [facility] ([place]) (0000 0) Comment: Performed By: #### CBC, ADIF F, ANEU, TSH, LIPID, CMP, GFR #### [address] [address] Eosinophils (Bld) 0.20 0.00-0.40 10 3/mcL Normal 01-19-2020 [facility] [#/Vol] [facility] ([place]) (01286) Comment: Performed By: #### CBC, ADIF F, ANEU, TSH, LIPID, CMP, GFR #### [address] [address] Eosinophils/100 WBC (Bld) 1.7 0.0-7.0 % Normal 12-26 [facility] ([place]) (0000 0) Comment: Performed By: #### CBC, ADIF F, ANEU, TSH, LIPID, CMP, GFR #### [address] [address] Lymphocytes (Bld) 3.60 0.77-3.85 10 3/mcL Normal 01-19-2020 [facility] [#/Vol] [facility] ([place]) (86472) Comment: Performed By: #### CBC, ADIF F, ANEU, TSH, LIPID, CMP, GFR #### [address] [address] Lymphocytes/100 WBC (Bld) 28.2 10.0-50.0 % Normal 12-26 [facility] ([place]) (25653) Comment: Performed By: #### CBC, ADIF F, ANEU, TSH, LIPID, CMP, GFR #### [address] [address] Monocytes/100 WBC (Bld) 6.5 1.7-13.0 % Normal 2019 [facility] ([place]) (0000 0) Comment: Performed By: #### CBC, ADIF F, ANEU, TSH, LIPID, CMP, GFR #### [address] [address] Neutrophils/100 WBC (Bld) 63.1 37.0-80.0 % Normal 06- [facility] ([place]) (33159) Comment: Performed By: #### CBC, ADIF F, ANEU, TSH, LIPID, CMP, GFR #### [address] [place] [address] [place], [place] [address] progress on 2019-07 PROGRESS HNO ID: [id number] Normal 07-28-2019 [facility] Author: Raeann Oliva [place] ([id number]) Service: ? Author Type: Nurse Practitioner Type: [...] and symptoms. All questions addressed. Raeann Oliva APRN.INSTRUCTIONAL MATERIAL DIRECTOR [facility] on 2019-07-28 [facility] Office Visit (UCWSTR) Normal 07-28-19 20 [place] [facility] TIERA NOVA ([id number]) 1980 [facility] Date Time Provider Department ([id number]) 07/28/19 12:00 PM RAEANN OLIVA [facility] During your visit today, we recorded the following informati on about you: Temperature Pulse Respiration Blood pressure 98.9 degrees 101/minute 16/minute 138/86 Weight 113.9 kg Raeann Oliva, BRUSH MAKER.INSTRUCTIONAL MATERIAL DIRECTOR 07/28/2019 12:37 PM Addendum Subjective HPI Tiera [...] BE BASED ON THE PRIMARY CLINICAL RECORDS. [facility] provides no warranty or guarantee of the accuracy or completeness of information in this document. UNRECOGNIZED CONTENT PROVIDED BELOW FOR UNRECOGNIZED SECTION No Status Records FoundNo Status Records Found UNRECOGNIZED CONTENT PROVIDED BELOW FOR UNRECOGNIZED SECTION INFORMATION SOURCE DATE CREATED AUTHOR AUTHOR'S ORGANIZATIO N 07/28/2019 [facility] DATE CREATED AUTHOR AUTHOR'S ORGANIZATIO N 04/15/2020 [facility]
== END 2020-01-10 22:29 | disposition home or self-care (01) ==
PROVIDERS: Emergency Provider Emergency Medicine; PCP Nurse Practitioner Family
DX: R51 Headache (principal); R03.0 Elevated blood-pressure reading, without diagnosis of hypertension; F17.200 Nicotine dependence, unspecified, uncomplicated
CPT/HCPCS: 96361; 96374; 96375; 99283; J7030

== ENCOUNTER 2020-12-27 02:49 | Emergency (ER) | payer MEDICAID, SELFPAY ==
[2020-12-27 02:49] VITALS: BP 145/81; PULSE 85; RESP 16; TEMP 36.4; O2SAT 97; BMI 35.6
--- NOTE | 2020-12-27 03:03 | EDS_ITS ---
HPI History of Present Illness Chief Complaint: Back Narrative Narrative: Patient presents with low back pain. He stated this afternoon he started having back pain while doing laundry. No specific injury. He has had pain like this similar in the remote past with a negative x-ray series done in 2019. He denies any loss of bowel or bladder function. He denies any saddle anesthesia. He has pain in the low back with radicular pain going down the back of the bilateral legs to the feet. He describes a burning pain with some paresthesia. He has never had a herniated disc in the past. Try to get up this evening to use the restroom but has significant pain and could not. Tylenol was taken 4 hours ago with minimal relief of pain. He is able to urinate and have bowel movements per patient. [facility] Medical History HTN (hypertension) Migraine Home Medications NK 12/27/20 [History Last Taken Unknown] Allergy/AdvReac Type Severity Reaction Status Date / Time No Known Allergies Allergy Verified 12/27/20 02:55 Social History Smoking Status: Current every day smoker tobacco type: cigarettes ROS ROS ED ROS Narrative ROS Eyes: Denies visual changes, blurred vision, double vision ENT: Denies ear pain, rhinorrhea, sore throat Cardiovascular: Denies chest pain, palpitations, heart racing Respiratory: Denies dyspnea, cough, sputum, dyspnea on exertion, orthopnea,PND GI: Denies abdominal pain, nausea, vomiting, diarrhea, constipation, melena : Denies dysuria, hematuria, frequency Musculoskeletal: See HPI Skin: Denies rash, abscess, abrasions Neuro: See HPI Psych: Denies depression, anxiety Endo: Denies polyuria, polydipsia, polyphagia Heme: Denies easy bruising, easy bleeding, lymphadenopathy Allergy: Denies hives, swelling EXAM Physical Exam Narrative Exam Narrative: Vital signs reviewed General: Well-nourished well-developed Head: Normocephalic atraumatic Eyes: Pupils equal round and reactive to light extraocular movements intact ENT: TMs clear no hemotympanum no trauma Neck: Nontender full range of motion Cardiovascular: Regular rate rhythm no murmurs normal S1-S2 Respiratory: No distress clear to auscultation bilaterally chest nontender Abdomen: Soft nontender nondistended normal bowel sounds no masses Back: Midline lower lumbar back tenderness without swelling or deformity. Decreased range of motion all [place] secondary to pain. Extremities: Nontender active range of motion ?4 extremities but limited secondary to pain in his low back. Unable to do straight leg raise as the patient has significant pain in low back when legs are moved. no trauma Skin: Normal color no trauma Neuro alert oriented cranial nerves II through XII intact normal strength sens ation reflexes Const Vital Signs: 12/27/20 02:49 Temperature 97.6 F L Temperature Source Temporal Pulse Rate 85 Respiratory Rate 16 Blood Pressure 145/81 H Blood Pressure Mean 102 Pulse Ox 97 Oxygen Delivery Method Room Air MDM MDM MDM Narrative Medical decision making narrative: Patient given a dose of Dilaudid and Toradol. X-ray of the lumbar spine obtained. Interpretation of his lumbar x-ray shows nothing acute. Chronic changes with mild degenerative changes noted. Patient felt better after second dose of Dilaudid. Was able to ambulate to the bathroom . I suspect he has a low back strain versus radiculopathy secondary to possible disc herniation. Do not feel he has a cauda equina syndrome or central disc herniation that would require emergent MRI. He had no loss of bowel or bladder function. He will follow-up as an outpatient given a short course of Percocet. Radiography Diagnostic Testing: Radiology Impression Lumbar Spine X-Ray 12/27/20 03:29 IMPRESSION: No acute abnormality of the lumbar spine. Electronically Signed: James Sotelo MD at 3:44 EDT Tel , Service support , Discharge Plan Triage Chief Complaint: Back ED Provider: Mariano Lin Dx/Rx/DC Orders Prescriptions: No Action NK RF: 0 Primary Care Provider: Serenity Bertrand NP
[2020-12-27] MEDS: Ketorolac 15 MG/ML Vial IV (03:09)
[2020-12-27] MEDS: HYDROmorphone 1 MG/ML Syringe IV ×2 (03:10→04:01)
--- NOTE | 2020-12-27 03:29 | RAD_ITS ---
STUDY: X-RAY - LUMBAR SPINE REASON FOR EXAM: Male, 40 years old. Back pain TECHNIQUE: 3 view(s) of the lumbar spine were obtained. COMPARISON: None FINDINGS: Normal lumbar lordosis. There is no substantial scoliosis. There is a normal alignment of the vertebrae. No vertebral body fracture. No pars defect. Intervertebral disc spaces are preserved. Mild degenerative change of the facet joints from L2 through S1. Sacroiliac joints are unremarkable. No paraspinal soft tissue densities. RAD/Lumbar Spine 2 or 3 Views IMPRESSION: No acute abnormality of the lumbar spine. Electronically Signed: James Sotelo MD at 3:44 EDT Tel , Service support ,
[2020-12-27 05:34] VITALS: BP 134/88; PULSE 66; RESP 18; O2SAT 97
== END 2020-12-27 05:34 | disposition home or self-care (01) ==
PROVIDERS: Emergency Provider Emergency Medicine; PCP Nurse Practitioner Family
DX: M54.5 Low back pain (principal); R20.2 Paresthesia of skin; I10 Essential (primary) hypertension; F17.210 Nicotine dependence, cigarettes, uncomplicated
CPT/HCPCS: 72100; 96374; 96375; 96376; 99284; A4216